=== PATIENT | female | born 1935 | race Caucasian/White ===

== ENCOUNTER 2018-01-15 13:06 | Emergency (ER) | payer OTHER ==
[~2018-01-15] VITALS: Ht 157.5 cm; Wt 46.3 kg
[2018-01-15] MEDS ORDERED: CYMBALTA60 MG PO (13:23)
[2018-01-15] MEDS ORDERED: CYMBALTA30 MG PO (13:23)
[2018-01-15] MEDS ORDERED: NORVASC2.5 MG PO (13:23)
[2018-01-15] MEDS ORDERED: TRAZODONE HCL100 MG PO (13:24)
[2018-01-15] MEDS ORDERED: ASPIR 8181 MG PO (13:24)
[2018-01-15] MEDS ORDERED: ZOCOR20 MG PO (13:24)
[2018-01-15] MEDS ORDERED: CALCIUM 600 +1 EAC1 PO (13:24)
[2018-01-15] MEDS ORDERED: LISINOPRIL-HCT1 EACH PO (13:24)
[2018-01-15] MEDS ORDERED: XANAX 0.25 MG0.25 MG PO (13:25)
[2018-01-15 13:54] LABS: HEMATOCRIT 38.4 % (37.0-47.0); HEMOGLOBIN 13.2 gm/dL (12.0-15.0); MCH 30.4 pg (26.0-34.0); MCHC 34.4 g/dL (28.0-37.0); MCV 88.4 fL (80.0-100.0); MPV 7.1 fl. (7.2-11.1); NUCLEATED RBCS 0 /100WBC; PLATELET COUNT* 355 thou/uL (150-400); RBC 4.34 mil/uL (4.20-5.00); RDW-CV 13.5 % (10.5-14.5); WBC 12.4 thou/uL (4.0-11.0)
[2018-01-15 14:02] LABS: CALCIUM 9.9 mg/dL (8.5-10.1); CREATININE 0.8 mg/dL (0.6-1.3); POTASSIUM 3.6 mmol/L (3.5-5.1)
[2018-01-15 14:07] LABS: ALBUMIN 4.5 g/dL (3.4-5.0); TOTAL BILIRUBIN 0.8 mg/dL (<0.1-1.0); TOTAL PROTEIN 7.8 g/dL (6.4-8.2)
[2018-01-15 14:31] LABS: ABSOLUTE LYMPHOCYTES 0.4 thou/uL (0.8-5.3); ABSOLUTE MONOCYTES 0.5 thou/uL (0.0-1.2); ABSOLUTE NEUTROPHILS 11.5 thou/uL (1.6-8.1); PLATELET ESTIMATE ADEQUATE
[2018-01-15 15:14] VITALS: BP 153/73
== END 2018-01-15 15:15 | disposition home or self-care (01) ==
LOC: M.ERS 13:06
PROVIDERS: Nurse Practitioner Family
DX: S01.01XA Laceration without foreign body of scalp, initial encounter (principal); I10 Essential (primary) hypertension; E78.00 Pure hypercholesterolemia, unspecified; F32.9 Major depressive disorder, single episode, unspecified; Z88.8 Allergy status to other drugs, medicaments and biological substances; W18.39XA Other fall on same level, initial encounter; Y93.89 Activity, other specified; Y92.091 Bathroom in other non-institutional residence as the place of occurrence of the external cause; Y99.8 Other external cause status